=== PATIENT | female | born 1960 | race Two or more races ===

== ENCOUNTER → 2025-04-02 | Outpatient (CLI) | payer BC, SELFPAY ==
[2025-04-02 11:31] LABS: Basophils # (Auto) 0.1 Thou/mm3 (0.0-0.2); Basophils % (Auto) 3 % (0-2.5); Eosinophils # (Auto) 0.0 Thou/mm3 (0.0-0.5); Eosinophils % (Auto) 1 % (0-10); Hematocrit 42.6 % (36.0-46.0); Hemoglobin 14.8 g/dL (12.0-16.0); Immature Granulocytes Auto 0.00 Thou/mm3 (0.00-0.00); Lymphocytes # (Auto) 1.0 Thou/mm3 (1.0-4.8); Lymphocytes % (Auto) 38 % (10-50); Mean Corpuscular HGB Conc 34.7 g/dl (31.0-37.0); Mean Corpuscular Hemoglobin 34.8 pg (25.0-35.0); Mean Corpuscular Volume 100 fL (80-100); Monocytes # (Auto) 0.2 Thou/mm3 (0.0-0.8); Monocytes % (Auto) 8 % (0-12); Neutrophils # (Auto) 1.3 Thou/mm3 (1.8-7.7); Neutrophils % (Auto) 51 % (37-80); Nucleated Red Blood Cell # 0.00 Thou/mm3 (0.00-0.00); Nucleated Red Blood Cell % 0 /100 WBC (0); Platelet Count 151 Thou/mm3 (140-440); RDW Standard Deviation 58.4 fL (36.4-46.3); Red Blood Count 4.25 Miln/mm3 (4.00-5.20)
[2025-04-02 11:47] LABS: Creatinine MALB Rnd Ur 94 mg/dL (30-125); Microalbumin, Random Urine < 3 mg/L (0-300)
[2025-04-02 11:53] LABS: White Blood Count 2.5 Thou/mm3 (3.6-11.0)
[2025-04-02 11:56] LABS: Alanine Aminotransferase 32 U/L (10-49); Albumin, Serum 4.6 gm/dL (3.4-4.8); Albumin/Globulin Ratio 1.8 (1.2-2.2); Alkaline Phosphatase 92 U/L (46-116); Anion Gap 9 (7-16); Aspartate Amino Transferase 30 U/L (0-34); BUN/Creatinine Ratio 13 Ratio (12-20); Bilirubin,Total 1.2 mg/dL (0.3-1.2); Blood Urea Nitrogen 17 mg/dL (9-23); Calcium 9.4 mg/dL (8.3-10.6); Calcium (Corrected) 9.4 mg/dL (8.5-10.1); Carbon Dioxide 29.5 mMol/L (20.0-31.0); Cardiac Risk Estimate 2.6 RATIO (3.7-5.6); Chloride 106 mMol/L (98-107); Cholesterol 145 mg/dL (132-200); Creatinine (Component) 1.3 mg/dL (0.6-1.3); Globulin 2.6 gm/dL (2.3-3.5); Glucose 155 mg/dL (74-106); HDL Cholesterol 55 mg/dL (40-60); LDL Cholesterol,Calculated 73 mg/dL (0-130); Osmolality,Calculated 291 (275-295); Potassium 3.6 mMol/L (3.4-5.1); Sodium 144 mMol/L (136-145); Thyroid Stimulating Hormone 0.89 uIU/mL (0.55-4.78); Total Protein 7.2 gm/dL (5.7-8.2); Triglycerides 87 mg/dL (30-150); eGFR 46 See Note
[2025-04-02 12:11] LABS: Glucose Estimated Average 157 mg/dL (80-131); Hemoglobin A1C 7.1 % Hgb (4.8-6.0)
== END | disposition home or self-care (01) ==
PROVIDERS: PCP Internal Medicine; Referring Provider Internal Medicine; Visit Provider Internal Medicine
DX: C50.911 Malignant neoplasm of unspecified site of right female breast (principal); R00.2 Palpitations; R79.81 Abnormal blood-gas level; M25.512 Pain in left shoulder; E11.65 Type 2 diabetes mellitus with hyperglycemia; I10 Essential (primary) hypertension
CPT/HCPCS: 36415; 80053; 80061; 82043; 82570; 83036; 84443; 85025

== ENCOUNTER → 2025-05-29 | Outpatient (CLI) | payer BC, SELFPAY ==
--- NOTE | 2025-05-29 10:00 | XR_ITS ---
Examination: Retroperitoneal ultrasound, complete Technique: Multiple high resolution grayscale images of the retroperitoneum obtained, including kidneys and bladder. Exam date and time:May 29, 2025 1111 hours INDICATIONS: Acute renal failure on laboratory examination April 02, 2025 FINDINGS: Right kidney 11.7 cm cortex 1.2 cm Left kidney 11.0 cm renal cortex 2.0 cm Moderate renal scar formation No bladder mass or bladder calculi, bladder prevoid volume 1 98 cc IMPRESSION: Bilateral renal cortical thinning Moderate bilateral renal parenchymal scar formation No hydronephrosis
== END | disposition home or self-care (01) ==
PROVIDERS: PCP Internal Medicine; Referring Provider Internal Medicine; Visit Provider Internal Medicine
DX: N28.89 Other specified disorders of kidney and ureter (principal)
CPT/HCPCS: 76770

== ENCOUNTER → 2025-07-04 | Outpatient (CLI) | payer BC, SELFPAY ==
[2025-07-04 15:49] LABS: Parathyroid Hormone Intact 50.2 pg/ml (18.5-88.0)
[2025-07-04 15:50] LABS: Albumin, Serum 4.2 gm/dL (3.4-4.8); Anion Gap 6 (7-16); BUN/Creatinine Ratio 13 Ratio (12-20); Blood Urea Nitrogen 13 mg/dL (9-23); Calcium 9.4 mg/dL (8.3-10.6); Calcium (Corrected) 9.4 mg/dL (8.5-10.1); Carbon Dioxide 30.1 mMol/L (20.0-31.0); Chloride 108 mMol/L (98-107); Creatinine (Component) 1.0 mg/dL (0.6-1.3); Glucose 100 mg/dL (74-106); Osmolality,Calculated 286 (275-295); Phosphorous 2.8 mg/dL (2.4-5.1); Potassium 3.5 mMol/L (3.4-5.1); Sodium 144 mMol/L (136-145); eGFR > 60 See Note
[2025-07-04 15:58] LABS: Collection Type, Urine Clean Catch
[2025-07-04 16:11] LABS: Bilirubin,Urine Negative (Negative); Blood,Urine Trace (Negative); Clarity,Urine Clear (Clear/Hazy); Color,Urine Lt-Yellow (Lt Yel-Yel); Glucose, Urine Negative (Negative); Hyaline Casts,Urine < 1 /hpf (0-1); Ketones,Urine Negative (Negative); Leukocyte Esterase,Urine Positive (Negative); Nitrite,Urine Negative (Negative); PH,Urine 6.0 (5.0-7.0); Protein,Urine Negative (Neg - Trace); RBC,Urine 3 /hpf (0-3); Specific Gravity,Urine 1.018 (1.001-1.035); Squamous Epithelial Cell,Urine 4 /hpf (0-5); Urobilinogen,Urine Negative mg/dL (0.0-1.0); WBC,Urine 12 /hpf (0-5)
[2025-07-04 16:57] LABS: Creatinine MALB Rnd Ur 62 mg/dL (30-125); Microalbumin Creat Ratio 11 mg/gCrea (<30); Microalbumin, Random Urine 7 mg/L (0-300)
== END | disposition home or self-care (01) ==
PROVIDERS: PCP Family Medicine; Referring Provider Internal Medicine; Visit Provider Internal Medicine
DX: N17.9 Acute kidney failure, unspecified (principal)
CPT/HCPCS: 36415; 80069; 81001; 82043; 82570; 83970

== ENCOUNTER → 2025-08-20 | Outpatient (CLI) | payer BC, SELFPAY ==
[2025-08-20 17:07] LABS: Albumin, Serum 5.0 gm/dL (3.4-4.8); Anion Gap 11 (7-16); BUN/Creatinine Ratio 16 Ratio (12-20); Blood Urea Nitrogen 25 mg/dL (9-23); Calcium 10.1 mg/dL (8.3-10.6); Calcium (Corrected) 10.1 mg/dL (8.5-10.1); Carbon Dioxide 26.4 mMol/L (20.0-31.0); Chloride 100 mMol/L (98-107); Creatinine (Component) 1.6 mg/dL (0.6-1.3); Glucose 153 mg/dL (74-106); Magnesium 2.4 mg/dL (1.6-2.6); Osmolality,Calculated 281 (275-295); Phosphorous 3.9 mg/dL (2.4-5.1); Potassium 4.3 mMol/L (3.4-5.1); Sodium 137 mMol/L (136-145); eGFR 36 See Note
== END | disposition home or self-care (01) ==
PROVIDERS: PCP Internal Medicine; Referring Provider Internal Medicine; Visit Provider Internal Medicine
DX: N17.8 Other acute kidney failure (principal); I10 Essential (primary) hypertension
CPT/HCPCS: 36415; 80069; 83735